=== PATIENT | female | born 1960 | race African-American/Black ===

== ENCOUNTER 2019-02-14 19:03 | Inpatient (IN) | payer OTHER ==
[~2019-02-14] VITALS: Ht 157.5 cm; Wt 64.4 kg
[2019-02-14 04:00] VITALS: BP 120/80
[2019-02-14 19:11] VITALS: BP 122/77
--- NOTE | 2019-02-14 19:32 | NUR ---
PT AMBULATED TO ER BED 12
--- NOTE | 2019-02-14 19:33 | NUR ---
PT BIB DAUGHTER C/O CHEST PAIN. PT STATES SUDDEN ON SET OF CHEST PAIN AT 1400 WHILE AT WORK; PT DENIES TRAUMA OR INJURY; PT DESCRIBES PAIN AT 8/10 STABBING AND PINCHING RADIATING TO HER BACK; +NAUSEA W/O VOMITING. PT LUNG SOUNDS CLEAR BL; BREATHING EQUAL AND UNLABORED. PT ACTING APPROPRIATLY; PT SPEAKING IN CLEAR AND COMPELTE SENTENCES. PT GAURDING CHEST; +MOANING AND +FACIAL GRIMACE. PT PLACED ON BEDSIDE FRAMING MECHANIC. SAFETY PRECAUTIONS IN PLACE. PENDING ER MD DON. PMH: DIABETES RX: LISINOPRIL, GABAPENTIN, ATORVASTATIN, METFORMIN, INSULIN
--- NOTE | 2019-02-14 19:45 | NUR ---
LABS DRAWN BY RN, IN BIN WAITING FOR ORDERS AND LAB GRAPHITE GRINDER.
--- NOTE | 2019-02-14 19:50 | NUR ---
PT AMBULATED TO BR W/ STEADY GATE AT THIS TIME, PT ACTING APPROPRIATLY.
--- NOTE | 2019-02-14 20:00 | NUR ---
DAUGHTER AT BEDSIDE.
--- NOTE | 2019-02-14 20:22 | NUR ---
DR. LOBO AT BEDSIDE FOR EVALUATION.
[2019-02-14] MEDS ORDERED: fentaNYL 0.05 MG/ML VIAL IVP ONE ×2 (21:00→22:05)
[2019-02-14] MEDS ORDERED: ASPIRIN 81 MG TAB.CHEW PO ONE (21:00)
--- NOTE | 2019-02-14 21:05 | NUR ---
XRAY AT BEDSIDE.
[2019-02-14 21:12] LABS: APPEARANCE,URINE CLEAR (CLEAR); BILIRUBIN,URINE NEGATIVE (NEGATIVE); BLOOD, URINE NEGATIVE (NEGATIVE); COLOR,URINE YELLOW (YELLOW); LEUKOCYTE ESTERASE ,URINE NEGATIVE (NEGATIVE); NITRITE, URINE NEGATIVE (NEGATIVE); PH,URINE 7.5 (5.0-9.0); UGLUCOSE NEGATIVE (NEGATIVE)
[2019-02-14 21:13] LABS: BASOPHILS # (AUTO) 0.1 K/uL (0.00-0.22); BASOPHILS % (AUTO) 0.6 % (0.0-2.0); EOSINOPHILS # (AUTO) 0.3 K/uL (0-0.4); EOSINOPHILS % (AUTO) 3.1 % (0.0-4.0); HEMATOCRIT 38.8 % (36-48); HEMOGLOBIN 12.9 g/dL (12.0-16.0); LYMPHOCYTES # (AUTO) 2.5 K/uL (2.5-16.5); LYMPHOCYTES % (AUTO) 28.6 % (20.5-51.1); MEAN CORPUSCULAR HEMOGLOBIN 28 pg (27-31); MEAN CORPUSCULAR HGB CONC 33 g/dL (33-37); MEAN CORPUSCULAR VOLUME 84.1 fL (80-94); MONOCYTES # (AUTO) 0.7 K/uL (0.8-1.0); MONOCYTES % (AUTO) 7.9 % (1.7-9.3); NEUTROPHILS # (AUTO) 5.1 K/uL (1.8-7.7); NEUTROPHILS % (AUTO) 59.8 % (42.2-75.2); PLATELET COUNT (AUTO) 265 K/uL (140-450); RED BLOOD CELL COUNT(AUTO) 4.61 MIL/uL (4.20-5.40); RED CELL DISTRIBUTION WIDTH 13.4 % (11.6-13.7); WHITE BLOOD COUNT (AUTO) 8.6 K/uL (4.8-10.8)
[2019-02-14 21:17] LABS: ANION GAP 16.4 (8-16); CARBON DIOXIDE 23.3 mmol/L (21-32); POTASSIUM 3.7 mmol/L (3.5-5.1)
[2019-02-14 21:23] LABS: ALBUMIN 4.1 g/dL (3.4-5.0); TOTAL BILIRUBIN 0.3 mg/dL (0.0-1.0)
[2019-02-14] MEDS ORDERED: NACL 0.9% 1,000 ML IV ONE (22:05)
--- NOTE | 2019-02-14 22:10 | NUR ---
0.9% NaCl started at this time: rate 999/hr; volume 1000 ml.
[2019-02-14] MEDS ORDERED: METF750T PO (22:18)
[2019-02-14] MEDS ORDERED: ATOR10TA PO (22:18)
[2019-02-14] MEDS ORDERED: GABA300C PO (22:18)
[2019-02-14] MEDS ORDERED: ALPR2TAB1 PO (22:18)
[2019-02-14] MEDS ORDERED: INSU100S22 SUBQ (22:18)
[2019-02-14] MEDS ORDERED: LISI5TAB18 PO (22:18)
--- NOTE | 2019-02-14 22:30 | NUR ---
IVP FENTANYL 0.1MG AT THIS TIME.
--- NOTE | 2019-02-14 22:38 | NUR ---
PT STATES SHE FEELS A LOT BETTER, HER PAIN HAS GONE DOWN TO 0/10. COMFORT MEASURES PROVIDED.
--- NOTE | 2019-02-14 22:50 | NUR ---
US AT BEDSIDE.
--- NOTE | 2019-02-14 23:25 | NUR ---
PT C/O PAIN AND DISCOMFORT TO R AC IV, PT REQUESTING THE IV BE TO ANOTHER SITE; TIP INTACT, BLEEDING CONTROLLED; BANDAGE APPLIED. IV START: L WRIST 20G, FLUSHED WELL, W/O RESISTANCE; NO REDNESS OR SWELLING NOTED. PT TOLERATED WELL.
[2019-02-14] MEDS ORDERED: DEXTROSE 50% 50 ML SYR IVP PRN (23:55)
[2019-02-14] MEDS ORDERED: ACETAMINOPHEN 325 MG TAB PO PRN (23:55)
[2019-02-15 00:45] LABS: CREATINE KINASE MB 2.1 ng/mL (0-3.6)
--- NOTE | 2019-02-15 01:01 | NUR ---
Admited to Tele. Patient went to room 123-B via gurney by RN and Gibran, EMT. Patient acting appropriatly, patient states pain has started again, nurse admitting nurse aware. Belongings list completed. Report to ZAK Wisdom.
--- NOTE | 2019-02-15 01:06 | NUR ---
RECEIVED ENDORSEMENT FROM ED VIA CHA ROMAN AWAKE ALERT ,ORIENTED X 4 , TELEMONITORING ,AMBULATORY, STEADY GAIT. PT HAS LEFT IV SITE IV ON RIGHT FA G 20, PATENT AND INTACT. PT ORIENTED TO UNIT. POC DISCUSSED. CALL LIGHT W/IN REACH.
--- NOTE | 2019-02-15 01:37 | NUR ---
called dr. hays, informed pt is allergic to mophine. and that dilaudid order was not verifies by pharmacy due to allergy to moprhine. dr. hays said to go ahead w/ dilaudid. will inform pharmacy
--- NOTE | 2019-02-15 01:39 | NUR ---
TALKED TO CRISTINE OF PHARMACY AND INFORMED HER TO VERIFY THE DILAUDID PER 'S ORDER TO GO AHEAD TO GIVE IT. PER FENTANYL WAS GIVEN AT THE ED AND HAD NO ALLERGIC RXN. FENTANYL IS A MORPHINE DERIVATIVE WELL
[2019-02-15] MEDS: HYDROmorphone 1 MG/ML AMP IVP PRN ×4 (02:03→22:36)
[2019-02-15] MEDS: DEXT 5% / NACL 0.45% 1,000 ML IV SCH ×3 (02:06→19:55)
--- NOTE | 2019-02-15 02:36 | NUR ---
PT HAD ITCHINESS AFTER A FEW MINS ADMINISTRATION OF DILAUDID. CALLED DR. GOODSON, ORDERED TO GIVE BENADRYL ALONG W/ THE DILAUDID. WILL CARRY OUT ORDER.
[2019-02-15] MEDS: diphenhydrAMINE 50 MG/ML VIAL IVP PRN ×4 (02:52→22:35)
--- NOTE | 2019-02-15 03:30 | NUR ---
NO MORE ITCHINESS NITED; PT SLEEPING COMFORTABLY IN BED. NO COMPLAINTS AT THIS TIME
[2019-02-15 04:00] VITALS: BP 120/80
[2019-02-15] MEDS: BLOOD GLUCOSE MONITORING 1 DEV DEV FS SCH ×4 (06:17→21:00)
--- NOTE | 2019-02-15 07:21 | NUR ---
ENDORSED PT TO AM SHIFT FOR CONTINUITY OF CARE. PT IN STABLE CONDITION AT THIS TIME
--- NOTE | 2019-02-15 07:22 | NUR ---
RECEIVED BEDSIDE REPORT FROM ZAK MATHEW. PATIENT ON TELE MONITOR AND STANDARD PRECAUTIONS IN PLACE. PATIENT AAOX4 AND COMMUNICATES APPROPRIATELY. PATIENT AMBULATORY AND CONTINENT. IV ON L WRIST 20 G INFUSING D5 1/2 NS AT 100, IV ASYMPTOMATIC PATENT AND INTACT. SKIN INTACT. BED IN LOW POSITION, CALL LIGHT WITHIN REACH, SIDE RAILS X2 UP
[2019-02-15 08:00] VITALS: BP 117/72
[2019-02-15] MEDS: GABAPENTIN 300 MG CAP PO SCH ×3 (08:08→17:30)
[2019-02-15] MEDS: ALPRAZolam 0.5 MG TAB PO SCH ×2 (08:09→20:28)
[2019-02-15] MEDS: LISINOPRIL 5 MG TAB PO SCH (08:09)
[2019-02-15] MEDS: ENOXAPARIN 40 MG/0.4 ML SYR SUBQ SCH (08:11)
[2019-02-15] MEDS: ONDANSETRON 4 MG/2 ML VIAL IVP PRN (08:23)
--- NOTE | 2019-02-15 08:31 | NUR ---
ADMINISTERED SCHEDULED MEDS. PATIENT TOLERATED WELL. HELD LISINOPRIL SINCE PATIENT RECEIVED DILAUDID FOR PAIN
--- NOTE | 2019-02-15 08:38 | NUR ---
PATIENT HAS BEEN SCREENED AND CATEGORIZED MODERATE NUTRITION RISK. PATIENT WILL BE SEEN WITHIN 3-5 DAYS OF ADMISSION. 02/17/19-02/19/[address]
[2019-02-15 10:55] LABS: BASOPHILS % (AUTO) 0.8 % (0.0-2.0); EOSINOPHILS # (AUTO) 0.3 K/uL (0-0.4); EOSINOPHILS % (AUTO) 5.1 % (0.0-4.0); HEMATOCRIT 36.2 % (36-48); HEMOGLOBIN 12.1 g/dL (12.0-16.0); LYMPHOCYTES % (AUTO) 39.7 % (20.5-51.1); MEAN CORPUSCULAR HEMOGLOBIN 28 pg (27-31); MEAN CORPUSCULAR HGB CONC 33 g/dL (33-37); MEAN CORPUSCULAR VOLUME 85.2 fL (80-94); MONOCYTES # (AUTO) 0.5 K/uL (0.8-1.0); MONOCYTES % (AUTO) 9.3 % (1.7-9.3); NEUTROPHILS # (AUTO) 2.3 K/uL (1.8-7.7); NEUTROPHILS % (AUTO) 45.1 % (42.2-75.2); PLATELET COUNT (AUTO) 229 K/uL (140-450); RED BLOOD CELL COUNT(AUTO) 4.25 MIL/uL (4.20-5.40); RED CELL DISTRIBUTION WIDTH 13.6 % (11.6-13.7); WHITE BLOOD COUNT (AUTO) 5.1 K/uL (4.8-10.8)
[2019-02-15 11:13] LABS: ALBUMIN 3.4 g/dL (3.4-5.0); ANION GAP 12.4 (8-16); CARBON DIOXIDE 25.5 mmol/L (21-32); CREATININE 0.9 mg/dL (0.6-1.3); MAGNESIUM 1.8 mg/dL (1.8-2.4); POTASSIUM 3.9 mmol/L (3.5-5.1); TOTAL BILIRUBIN 0.5 mg/dL (0.0-1.0)
[2019-02-15] MEDS: INSULIN LISPRO SLIDING SCALE 100 UNITS/ML VIAL SUBQ PRN (11:54)
--- NOTE | 2019-02-15 11:59 | NUR ---
ADMINISTERED 2 UNITS INSULIN FOR BLOOD SUGAR 151. PATIENT TOLERATED WELL
[2019-02-15 12:00] VITALS: BP 124/71
[2019-02-15 13:33] LABS: CREATINE KINASE MB 1.6 ng/mL (0-3.6)
--- NOTE | 2019-02-15 14:02 | NUR ---
ADMINISTERED SCHEDULED MEDS. PATIENT TOLERATED WELL Addendum: 02/15/19 at 1430 by Gerda Quezada RN NS BOLUS AND SUBLIMAZE NOT GIVEN SINCE IT WAS NOT SCHEDULED DURING MY SHIFT
[2019-02-15] MEDS: fentaNYL 0.05 MG/ML VIAL IVP PRN ×3 (14:20→20:26)
[2019-02-15 16:00] VITALS: BP 121/66
--- NOTE | 2019-02-15 16:31 | NUR ---
PATIENT SLEEPING, ON ROOM AIR, NO DISTRESS NOTED
--- NOTE | 2019-02-15 17:39 | NUR ---
ADMINISTERED SCHEDULED MEDS. PATIENT TOLERATED WELL
--- NOTE | 2019-02-15 17:50 | NUR ---
PATIENT TAKING A SHOWER, NO COMPLAINTS AT THIS TIME
--- NOTE | 2019-02-15 18:39 | NUR ---
ADMINISTERED DILAUDID PRN. BP OF 130/75 AND HR 78
--- NOTE | 2019-02-15 19:28 | NUR ---
BEDSIDE REPORT GIVEN TO ZAK JACINTO. PATIENT ENDORSED IN STABLE CONDITION
--- NOTE | 2019-02-15 19:29 | NUR ---
RECEIVED PT FROM CARMELA CRESPO PT IS AAOX4 VERBALIZED NEEDED ON TELEMETRY SR, IV ;ON LEFT ARM INFUSING WELL NOT PAIN AT THIS TIME INITIAL ASSESSMENT DONE.
[2019-02-15 20:00] VITALS: BP 120/69
--- NOTE | 2019-02-15 21:00 | NUR ---
PT COMPLAIN THAT PAIN MEDIC DOES NOT WORK AND PT WANT TO BE INCREASED FENTANYL DOSES AND DR HI WAS CALL AND HE WAS INFORMED ABOUT PT CONDITION AND DR HI SAID FOLLOW DR GLASGOW THAT HE ALREADY UPDATED ., AND CHARGE NURSE AWARE PT UPSET
--- NOTE | 2019-02-15 21:30 | NUR ---
RECEIVED BEDSIDE REPORT FROM OPHELIA CRESPO FOR CONTINUITY OF CARE. PATIENT IS IN STABLE CONDITION. WILL CONTINUE TO MONITOR.
--- NOTE | 2019-02-15 21:30 | NUR ---
PT IS ENDORSED TO ADA CRESPO TO CONTINUE OF CARE
--- NOTE | 2019-02-15 22:05 | NUR ---
CHECKED ON PATIENT. PATIENT SLEEPING RESPIRATION EVEN UNLABORED ON ROOM AIR. NO DISTRESS NOTED. WILL CONTINUE TO MONITOR
--- NOTE | 2019-02-15 22:30 | NUR ---
PATIENT COMPLAINED OF 10/10 PAIN AND ITCHINESS. PRN PAIN MED AND BENADRYL ADMINISTER PER ORDER. WILL CONTINUE TO MONITOR
[2019-02-16] VITALS: BP 110/70
--- NOTE | 2019-02-16 | NUR ---
VITALS WERE TAKEN. PATIENT CONDITION STABLE. NO DISTRESS NOTED. WILL CONTINUE TO MONITOR
--- NOTE | 2019-02-16 02:35 | NUR ---
PATIENT WOKE UP FROM ABDOMINAL PAIN 8/10 AND ITCHINESS. PRN PAIN MED AND BENADRYL ADMINISTERED PER ORDER. WILL CONTINUE TO MONITOR
[2019-02-16] MEDS: diphenhydrAMINE 50 MG/ML VIAL IVP PRN ×4 (02:36→20:26)
[2019-02-16] MEDS: HYDROmorphone 1 MG/ML AMP IVP PRN ×4 (02:37→20:34)
[2019-02-16 04:00] VITALS: BP 94/59
--- NOTE | 2019-02-16 04:00 | NUR ---
VITALS WERE TAKEN. PATIENT CONDITION STABLE. NO DISTRESS NOTED. WILL CONTINUE TO MONITOR
[2019-02-16] MEDS: DEXT 5% / NACL 0.45% 1,000 ML IV SCH ×2 (04:36→13:06)
[2019-02-16] MEDS: fentaNYL 0.05 MG/ML VIAL IVP PRN ×3 (05:36→21:41)
--- NOTE | 2019-02-16 05:36 | NUR ---
PATIENT IS CRYING IN PAIN. PRN PAIN MED ADMINISTERED PER ORDER. PATIENT VITALS BP 99/62, P 70, R 18. WILL CONTINUE TO MONITOR.
[2019-02-16] MEDS ORDERED: fentaNYL 0.05 MG/ML VIAL ONE (05:39)
[2019-02-16] MEDS: INSULIN LISPRO SLIDING SCALE 100 UNITS/ML VIAL SUBQ PRN ×3 (05:53→20:55)
[2019-02-16] MEDS: BLOOD GLUCOSE MONITORING 1 DEV DEV FS SCH ×4 (05:55→20:17)
[2019-02-16 06:22] LABS: BASOPHILS % (AUTO) 0.7 % (0.0-2.0); EOSINOPHILS # (AUTO) 0.2 K/uL (0-0.4); EOSINOPHILS % (AUTO) 2.9 % (0.0-4.0); HEMATOCRIT 35.5 % (36-48); HEMOGLOBIN 11.9 g/dL (12.0-16.0); LYMPHOCYTES # (AUTO) 1.8 K/uL (2.5-16.5); LYMPHOCYTES % (AUTO) 27.8 % (20.5-51.1); MEAN CORPUSCULAR HEMOGLOBIN 29 pg (27-31); MEAN CORPUSCULAR HGB CONC 33 g/dL (33-37); MEAN CORPUSCULAR VOLUME 85.8 fL (80-94); MONOCYTES # (AUTO) 0.5 K/uL (0.8-1.0); MONOCYTES % (AUTO) 7.6 % (1.7-9.3); PLATELET COUNT (AUTO) 232 K/uL (140-450); RED BLOOD CELL COUNT(AUTO) 4.14 MIL/uL (4.20-5.40); RED CELL DISTRIBUTION WIDTH 13.4 % (11.6-13.7); WHITE BLOOD COUNT (AUTO) 6.6 K/uL (4.8-10.8)
[2019-02-16 07:01] LABS: ALBUMIN 3.2 g/dL (3.4-5.0); ANION GAP 11.3 (8-16); CARBON DIOXIDE 26.7 mmol/L (21-32); CREATININE 0.9 mg/dL (0.6-1.3); TOTAL BILIRUBIN 0.4 mg/dL (0.0-1.0)
--- NOTE | 2019-02-16 07:18 | NUR ---
ENDORSED PATIENT TO DAY SHIFT NURSE FOR CONTINUITY OF CARE. PATIENT CONDITION IS STABLE.
--- NOTE | 2019-02-16 07:19 | NUR ---
RECEIVED REPORT FROM SENIOR ENERGY CONSULTANT NURSE FRANCIA FOR CONTINUITY OF CARE. PT IN STABLE CONDITION. RESPIRATIONS EVEN AND UNLABORED. IV INTACT AND PATENT. SAFETY MEASURES IN PLACE. BED IN LOW POSITION. BED ALARM ON. CALL LIGHT AT BEDSIDE. WILL CONTINUE TO MONITOR.
[2019-02-16 08:00] VITALS: BP 109/64
--- NOTE | 2019-02-16 08:18 | NUR ---
GIVEN EXTRA PILLOW PER PT REQUEST. PT IN STABLE CONDITION. WILL CONTINUE TO MONITOR.
[2019-02-16] MEDS: LISINOPRIL 5 MG TAB PO SCH (09:00)
[2019-02-16] MEDS: ALPRAZolam 0.5 MG TAB PO SCH ×2 (09:05→20:24)
[2019-02-16] MEDS: GABAPENTIN 300 MG CAP PO SCH ×3 (09:05→17:28)
[2019-02-16] MEDS: ENOXAPARIN 40 MG/0.4 ML SYR SUBQ SCH (09:08)
--- NOTE | 2019-02-16 09:20 | NUR ---
TORPORTILLO BAGLEY DR., M.D. DISCONTINUE DILAUDID, INCREASE FENTANYL 0.05 Q3H PRN.
[2019-02-16] MEDS ORDERED: fentaNYL 0.05 MG/ML VIAL IVP PRN (09:35)
[2019-02-16] MEDS ORDERED: diphenhydrAMINE 50 MG CAP PO PRN (09:35)
--- NOTE | 2019-02-16 11:33 | NUR ---
PT REQUEST DOUBLE ORDER OF CLEAR LIQUID DIET TRAY. FNS NOTIFIED.
[2019-02-16 12:00] VITALS: BP 105/70
--- NOTE | 2019-02-16 13:30 | NUR ---
PORTILLO BOWMAN DR., M.D. FENTANYL 0.025 Q3H PRN 4-6 PAIN, DILAUDID Q4H PRN 7-10 PAIN.
--- NOTE | 2019-02-16 13:31 | NUR ---
PORTILLO BOWMAN DR., M.D. BENADRYL 25MG IVP Q4H PRN FOR ITCHING. DISCONTINUE BENADRYL 50MG PO Q6HR FOR ITCHING.
--- NOTE | 2019-02-16 15:07 | NUR ---
PT LYING IN BED SLEEPING AT THIS TIME. RESPIRATIONS EVEN AND UNLABORED. BED IN LOW POSITION. CALL LIGHT AT BEDSIDE. WILL CONTINUE TO MONITOR.
[2019-02-16 16:00] VITALS: BP 110/64
--- NOTE | 2019-02-16 19:30 | NUR ---
GAVE REPORT TO PHYSIOLOGIST NURSE FOR CONTINUITY OF CARE. PT IN STABLE CONDITION.
--- NOTE | 2019-02-16 19:30 | NUR ---
REPORT RECEIVED FROM PO CRESPO DAYSHIFT NURSE AT BEDSIDE FOR CONTINUITY OF CARE, PT IN STABLE CONDITION. PT HAS ALL FALLS PRECAUTIONS IN PLACE. SHE IS AOX4 WITH SKIN INTACT. LUNGS CLEAR, AND BOWEL SOUNDS ACTIVE. PT ABDOMEN SOFT BUT DISTENDED. PT C/O CONSTIPATION, SHE SAID IS HER NORMAL PATTERN BUT SHE IS REQUESTING A PRN FOR CONSTIPATION. V/S FOLLOWS T 98.5 P 88 R 18 B/P 142/81 02 97% ON ROOM AIR.
[2019-02-16 20:00] VITALS: BP 107/67
--- NOTE | 2019-02-16 20:45 | NUR ---
PT C/O SEVERE PAIN IN ABDOMEN DUE TO THE PANCREATITIS. PT ALSO C/O ITCHINESS, PT GIVEN DILAUDID IVP ORDERED AND BENADRYL IVP ORDERED. WILL MONITOR FOR PAIN RELIEF.
--- NOTE | 2019-02-16 21:45 | NUR ---
PT GIVEN DUE MEDS OF XANAX, PT ALSO GIVEN FENTANYL IVP DUE TO PT C/O THAT DILAUDID NOT EFFECT AND PT STILL FEELS PAIN. PT GIVEN IVP FENTANYL REQUESTED.
--- NOTE | 2019-02-16 22:00 | NUR ---
PT C/O THAT IV SITE IS LEAKING, SMALL SWELLING NOTED BELOW IV SITE, IV SITE TURNED OFF WILL REPLACE IV. [facility] CALLED FOR ON ALEXANDRO PHYSICIAN. DR. MACIAS JUNIOR SYSTEMS ADMINISTRATOR. NEW ORDERS NOTED FOR PT PRN COLACE AND PT C/O THAT NOT ALL HER HOME MEDICATIONS WERE RECONCILED. PT C/O THAT SHE HAS NOT RECEIVED HER METFORMIN, LIPITOR. PT ALSO REQUESTING A BUMP IN HER DIET. PT SAID THAT SHE HAS BEEN TOLERATING HER LIQUID DIET WELL. OK WITH ALL RE-ORDERING HER HOME MEDS OF METFORMIN AND LIPITOR THAT SAME AMOUNTS THAT SHE TAKES AT HOME, HE ASLO ORDERED PO/PRN COLACE.
[2019-02-16] MEDS ORDERED: DOCUSATE SODIUM 100 MG GELCAP PO PRN (23:00)
--- NOTE | 2019-02-16 23:30 | NUR ---
PT IN BED MOANING AND "CRYING" BUT NO TEARS NOTED. PT C/O THAT SHE IS PAIN. ASSIGNED NURSE REMINDED PT THAT SHE CANNOT GIVE THE PAIN MEDICATION NOW AND THAT IT WAS TOO EARLY. PT SAID THAT "YOU GAVE IT TO ME AT 7:30PM WHEN HER DAUGHTER IN LAW WAS VISITING." NURSE CORRECTED HER AND SAID THAT YOU ASKED WHEN YOU CAN GET YOUR PAIN MEDS THEN YOU ALSO ASKED ABOUT HAVING SOMETHING FOR CONSTIPATION AND ALSO ABOUT YOUR OTHER MEDICATIONS THAT HAVE NOT BEEN RECONCILED YET. NURSE REMINDED PT THAT I CAN ONLY GIVEN WHAT THE MD HAS ORDERED.I CANT GIVEN YOU THE MEDICATION THAT YOU WANT. WITH THAT STATEMENT PT SAID "I AM TIRED OF PEOPLE COMPLAIN THAT I AM MED SEEKING!" NURSE REITERATED THAT I NEVER SAID YOU WERE PAIN SEEKING I JUST SAID THE MEDICATION YOU WANT BECAUSE YOUR IN PAIN. NURSE SAID LET ME CHANGE YOUR IV SITE FOR YOU. PT SAID IT FINE, JUST HOOK ME UP. NURSE SAID SHE WOULD GET THE CHARGE TO CONFIRM IF IV SITE IS INFILTRATED. CHARGE NURSE HERMES SAID THAT IT WAS INFILTRATED, CHARGE NURSE CHANGED SITE. PT REQUESTED A NEW NURSE.
[2019-02-17] VITALS: BP_SYST 107; BP_SYST 110; BP_DIAS 60; BP_DIAS 62
--- NOTE | 2019-02-17 00:30 | NUR ---
REPORT GIVEN TO SUMMER RN FOR CHANGE OF ASSIGNMENT. PT IN BED NO C/O VOICED AT THIS TIME.
--- NOTE | 2019-02-17 00:45 | NUR ---
RECEIVED BEDSIDE REPORT FROM SMOKING PIPE LINER NURSE HERMES FOR CONTINUITY OF CARE, PATIENT C/O PAIN AND BEING ITCHY WILL MEDICATE ACCORDING TO MD ORDER.
[2019-02-17] MEDS: diphenhydrAMINE 50 MG/ML VIAL IVP PRN ×3 (00:49→09:44)
[2019-02-17] MEDS: HYDROmorphone 1 MG/ML AMP IVP PRN ×3 (00:50→09:42)
[2019-02-17] MEDS: DEXT 5% / NACL 0.45% 1,000 ML IV SCH ×2 (00:56→11:55)
[2019-02-17] MEDS: fentaNYL 0.05 MG/ML VIAL IVP PRN ×2 (02:25→06:25)
--- NOTE | 2019-02-17 02:25 | NUR ---
PATIENT C/O WILL MEDICATE, V/S STABLE
[2019-02-17 03:54] VITALS: BP 120/81
--- NOTE | 2019-02-17 03:57 | NUR ---
PATIENT SLEEPING IN BED, NO SIGNS OF PAIN
--- NOTE | 2019-02-17 05:12 | NUR ---
PATIENT C/O PAIN WILL MEDICATE WITH DILAUDID
--- NOTE | 2019-02-17 05:45 | NUR ---
PATIENT REQUESTING FENTANYL VIA IV, EXPLAINED TO PATIENT I GAVE DILAUDID AT 0512. PATIENT STATED SHE WANTED BOTH DILAUDID, BENADRYL, AND FENTANYL VIA IV AROUND THE SAME TIME. EXPLAINED THAT IS UNSAFE, CONSULTED WITH CHARGE NURSE HERMES ABOUT PAIN MANAGEMENT, CHARGE NURSE MIRZA ADVISED TO WAIT 2 HOURS IN BETWEEN FOR PAIN MEDICATION. WILL EXPLAIN TO PATIENT.
[2019-02-17] MEDS: BLOOD GLUCOSE MONITORING 1 DEV DEV FS SCH (05:51)
[2019-02-17] MEDS: INSULIN LISPRO SLIDING SCALE 100 UNITS/ML VIAL SUBQ PRN (06:06)
--- NOTE | 2019-02-17 06:25 | NUR ---
PATIENT C/O PAIN, YELLING AND SCREAMING AT STAFF, GAVE FENTANYL, CHARGE NURSE HERMES JASSO.
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
--- NOTE | 2019-02-17 06:40 | NUR ---
PATIENT STATED SHE WANTED TO GO AMA, NOTIFIED HOUSE SUP.
--- NOTE | 2019-02-17 07:01 | NUR ---
ATTEMPTED TO CALL DR DELCID, DR MACIAS TAXONOMY TEACHER, TOLD TO CALL BACK IN 5 MINS TO SPEAK WITH DR DELCID. TOLD BY TESTING TECH TO ENDORSE TO DAY SHIFT NURSE TO CALL DR DELCID AND NOTIFY OF SITUATION.
--- NOTE | 2019-02-17 07:25 | NUR ---
ENDORSED PATIENT TO DAY SHIFT NURSE PATIENT STABLE
--- NOTE | 2019-02-17 07:26 | NUR ---
RECEIVED REPORT FROM DIRECTOR OF PUBLIC SAFETY NURSE [facility] FOR CONTINUITY OF CARE. PT IN STABLE CONDITION. RESPIRATIONS EVEN AND UNLABORED. IV INTACT AND PATENT. SAFETY MEASURES IN PLACE. BED IN LOW POSITION. CALL LIGHT AT BEDSIDE. WILL CONTINUE TO MONITOR.
[2019-02-17 08:00] VITALS: BP 131/71
[2019-02-17] MEDS ORDERED: metFORMIN 500 MG TAB PO SCH (08:00)
--- NOTE | 2019-02-17 08:15 | NUR ---
GAVE ORDERED DUE MEDICATION AT THIS TIME. PT TOLERATED WELL.
[2019-02-17] MEDS: LISINOPRIL 5 MG TAB PO SCH ×2 (09:00→09:43)
[2019-02-17] MEDS: ALPRAZolam 0.5 MG TAB PO SCH (09:42)
[2019-02-17] MEDS: GABAPENTIN 300 MG CAP PO SCH (09:44)
[2019-02-17] MEDS: ENOXAPARIN 40 MG/0.4 ML SYR SUBQ SCH (10:00)
[2019-02-17] MEDS: ONDANSETRON 4 MG/2 ML VIAL IVP PRN (10:05)
--- NOTE | 2019-02-17 11:30 | NUR ---
PT REFUSED TO HAVE BLOOD SUGAR CHECKED AT THIS TIME DUE TO PENDING DISCHARGE.
--- NOTE | 2019-02-17 12:00 | NUR ---
PT REFUSED TO WEAR EXCELLENCE LEADER AT THIS TIME. PT GETTING DRESSED WAITING TO BE DISCHARGED HOME.
--- NOTE | 2019-02-17 13:00 | NUR ---
GAVE DISCHARGE INSTRUCTIONS, PT VERBALIZED UNDERSTANDING OF INSTRUCTIONS. IV REMOVED, LUMEN INTACT. ID BAND REMOVED. PT REFUSED WHEELCHAIR AT THIS TIME. PT WAS ESCORTED BY NURSE TO LOBBY IN STABLE CONDITION WHERE FAMILY MEMBER (DAUGHTER) WAS WAITING WITH VEHICLE.
[2019-02-17] MEDS ORDERED: ATORVASTATIN 20 MG TAB PO SCH (21:00)
== END 2019-02-17 13:00 | disposition home or self-care (01) | DRG 282 ==
LOC: MED 19:03 → MTU 02-15 00:36
PROVIDERS: ADMIT Internal Medicine Pulmonary Disease; ATTEND Internal Medicine Pulmonary Disease
DX: K85.90 Acute pancreatitis without necrosis or infection, unspecified (principal); E11.9 Type 2 diabetes mellitus without complications; F10.10 Alcohol abuse, uncomplicated; I10 Essential (primary) hypertension; E78.5 Hyperlipidemia, unspecified; Z88.5 Allergy status to narcotic agent; Z88.2 Allergy status to sulfonamides; Z88.8 Allergy status to other drugs, medicaments and biological substances; Y90.9 Presence of alcohol in blood, level not specified
CPT/HCPCS: 36415; 71045; 76705; 80053; 81003; 82550; 82553; 82948; 83690; 83735; 84484; 85025; 85379; 87081; 93005; 96374; 99285; G0482; J1170; J1200; J1650; J1815; J2405; J3010; Q0092; Q0163

== ENCOUNTER 2021-10-13 17:07 | Emergency (ER) | payer OTHER ==
[~2021-10-13] VITALS: Ht 157.5 cm; Wt 56.7 kg
[~2021-10-13 17:07] MED LIST: ALPR2TAB1 PO; ATOR10TA PO; GABA300C PO; INSU100S22 SUBQ; LISI5TAB18 PO; METF750T PO
[2021-10-13 17:14] VITALS: BP 112/86
[2021-10-13] MEDS ORDERED: BACITRACIN OINT 500 UNITS/GM PKT TP ONE (17:30)
[2021-10-13] MEDS ORDERED: LIDOCAINE MPF 1% 10 MG/ML VIAL INJ ONE ×2 (17:30)
[2021-10-13] MEDS ORDERED: HYDROcodone/APAP 5/325 MG 1 TAB TAB PO ONE (17:30)
--- NOTE | 2021-10-13 17:41 | NUR ---
PT AMBULATED TO CHAIR B, LAC TRAY SET UP AT BED SIDE
--- NOTE | 2021-10-13 18:11 | NUR ---
ADRIANNE DOLAN PERFOMRING LACERATION REPAIR BEDSIDE
[2021-10-13] MEDS ORDERED: BACI1PAC6 TP (18:35)
[2021-10-13] MEDS ORDERED: ACET-8386 PO (18:35)
--- NOTE | 2021-10-13 18:56 | NUR ---
PT'S LAC CLEANED WITH NORMAL SALINE AND DRESSED WITH NON-ADHERENT GUAZE PAD AND WRAPPED 3" GAUZE ROLL. CMS WNL BEFORE AND AFTER AND PT STATES THAT THEY TOLERATED DRESSING WRAP WELL. RN NOTIFIED.
--- NOTE | 2021-10-13 18:57 | NUR ---
Patient discharged with v/s stable. Written and verbal after care instructions ABOUT LACERATION CARE given and explained. Patient alert, oriented and verbalized understanding of instructions. Ambulatory with steady gait. All questions addressed prior to discharge. ID band removed. Patient advised to follow up with PMD. Rx of NORCO 5-325MG AND BACITRACIN OINT given. Patient educated on indication of medication including possible reaction and side effects. Opportunity to ask questions provided and answered.
== END 2021-10-13 18:57 | disposition home or self-care (01) ==
LOC: MED 17:07
DX: S61.412A Laceration without foreign body of left hand, initial encounter (principal); E11.9 Type 2 diabetes mellitus without complications; I10 Essential (primary) hypertension; Z88.1 Allergy status to other antibiotic agents; Z88.2 Allergy status to sulfonamides; Z88.5 Allergy status to narcotic agent; Z88.8 Allergy status to other drugs, medicaments and biological substances; Z79.4 Long term (current) use of insulin; Z79.899 Other long term (current) drug therapy; W45.8XXA Other foreign body or object entering through skin, initial encounter; Y93.89 Activity, other specified; Y92.89 Other specified places as the place of occurrence of the external cause; Y99.8 Other external cause status
CPT/HCPCS: 12001; 99283; J2001